=== PATIENT | male | born 1965 | race Caucasian/White ===

== ENCOUNTER 2018-04-09 06:22 | Day surgery (SDC) | payer BC ==
[2018-03-24 12:04] VITALS: BMI 35.7
[2018-04-09] MEDS ORDERED: THROMBIN (RECOMBINANT) 5,000 UNIT VIAL TP ONE (07:02)
[2018-04-09] MEDS ORDERED: methylPREDNISolone ACET (DEPO) 40 MG/1 ML VIAL ONE (07:02)
[2018-04-09] MEDS ORDERED: GUM MASTIC/STORAX/MSAL/ALCOHOL 1 DRP DROPSBTL MC ONE (07:02)
[2018-04-09] MEDS ORDERED: BUPIVACAINE HCL/PF 2.5 MG/ML - 30 ML VIAL IJ ONE (07:02)
[2018-04-09] MEDS ORDERED: LIDOCAINE 1%/EPI 1:100000 (20 ML MULTI DOSE VIAL) ONE (07:02)
--- NOTE | 2018-04-09 07:09 | HP ---
History & Physical Update - History History: No Change - Physical Physical: No Change - Assessment Assessment: No Change - Plan Plan: No Change (Initial H&P is complete and accurate. No new medications or complaints since completing initial H&P. Prior too surgery c/o neck pain with LUE burning sensation, numbness and tingling. Here today for elective C7-T1 laminectomy.)
[2018-04-09] MEDS ORDERED: oxyCODONE HCL 10 MG SUSTAINED ACTING TABLET PO STA (07:12)
[2018-04-09] MEDS ORDERED: MIDAZOLAM HCL 2 MG/2 ML SINGLE DOSE VIAL ONE (07:39)
[2018-04-09] MEDS ORDERED: ROCURONIUM BROMIDE 50 MG/5 ML VIAL ONE (08:33)
[2018-04-09] MEDS ORDERED: PROPOFOL 20 ML ONE ×2 (08:33)
[2018-04-09] MEDS ORDERED: SUCCINYLCHOLINE CHLORIDE 200 MG/10 ML VIAL ONE (08:33)
[2018-04-09] MEDS ORDERED: LIDOCAINE HCL/PF 2% SDV 5ML VIAL ONE (08:41)
[2018-04-09] MEDS ORDERED: ONDANSETRON 4 MG/2 ML VIAL ONE ×2 (08:41→10:33)
[2018-04-09] MEDS ORDERED: ceFAZolin SODIUM 1 GM VIAL ONE (08:59)
[2018-04-09] MEDS ORDERED: DEXAMETHASONE SOD PHOSPHATE 4 MG/1 ML VIAL ONE ×2 (08:59→10:33)
[2018-04-09] MEDS ORDERED: LIDOCAINE 1%/EPI 1:100000 (50 ML MULTI DOSE VIAL) INF ONE (09:10)
[2018-04-09] MEDS ORDERED: THROMBIN (BOVINE) 5,000 UNIT VIAL TP ONE (09:31)
[2018-04-09] MEDS ORDERED: GELATIN SPONGE,ABSORBABLE 1 GM PACKET TP ONE (09:31)
[2018-04-09] MEDS ORDERED: ePHEDrine SULFATE 50 MG/1 ML AMPULE ONE (09:37)
[2018-04-09] MEDS ORDERED: LACTATED RINGERS SOLUTION 1,000 ML IV SCH (10:00)
[2018-04-09] MEDS ORDERED: ONDANSETRON 4 MG/2 ML VIAL IVPUSH PRN (10:00)
[2018-04-09] MEDS ORDERED: oxyCODONE HCL 5 MG TABLET PO PRN (10:00)
[2018-04-09] MEDS ORDERED: BUPIVACAINE HCL/PF 0.25% (2.5MG/ML) 10 ML VIAL IJ ONE (10:18)
[2018-04-09] MEDS ORDERED: methylPREDNISolone ACET (DEPO) 40 MG/1 ML VIAL IM ONE (10:21)
--- NOTE | 2018-04-09 10:45 | OP ---
Operative Note - Note: Operative Date: 04/09/18 Pre-Operative Diagnosis: C7-T1 disc herniation with LUE radiculopathy Operation: C7-T1 left laminectomy with discectomy Post-Operative Diagnosis: Same as Pre-op Surgeon: Trevor Henderson Senior Advisory: Bro Duran Anesthesiologist/PIANO INSTRUCTOR: Rosa Goff Anesthesia: General Specimens Removed: C7-T1 disc Estimated Blood Loss (mls): 20 Fluid Volume Replaced (mls): 1,200 Operative Report Dictated: Yes
--- NOTE | 2018-04-09 10:47 | SURG ---
Surgery Metal Slitter Note Metal Slitter: Bro Duran PA-C Date of Service: 04/09/18 Diagnosis: C7-T1 disc herniation with LUE radiculopathy Procedure: C7-T1 left laminectomy with discectomy I was present for the entirety of the operative procedure. For further detail, please refer to operative report. Visit type - Case Type Case Type: Scheduled - New patient This patient is new to me today: Yes Date on this admission: 04/09/18
[2018-04-09] MEDS ORDERED: ACETAMINOPHEN 1000 MG/100 ML VIAL (NON FORMULARY) IVPB ONE (10:51)
--- NOTE | 2018-04-09 11:27 | OP ---
DATE OF OPERATION: 04/09/2018 PREOPERATIVE DIAGNOSIS: Cervical stenosis, C7-T1. POSTOPERATIVE DIAGNOSIS: Cervical stenosis, C7-T1. PROCEDURE PERFORMED: Left posterior cervical hemilaminectomy. SURGEON: Trevor Henderson MD DRAGLINE MECHANIC: ABBY Jha ESTIMATED BLOOD LOSS: 50 mL. INTRAVENOUS FLUIDS: Per Anesthesia. ANESTHESIA: General. COMPLICATIONS: There were none. DISPOSITION: Patient brought to the PACU in stable condition. INDICATION FOR SURGERY: The patient is a 53-year-old gentleman who has been suffering from pain from his neck down his left arm. X-rays and MRI were completed which showed that he had cervical stenosis with a pinched nerve on his left-hand side. He had gone through an exhaustive course of treatment for this, which included medications, physical therapy, as well as injections. Unfortunately, his pain continued to persist, despite all of this. At this point, risks, benefits, and alternatives were discussed, and the patient consented to surgery. OPERATIVE NOTE: The patient was brought to the operating room by the Anesthesia staff. After appropriate patient identification was performed, general anesthesia was administered. The patient was placed prone onto the OR table with all areas of bony prominences well padded at this time. His arms were well padded. Tape was used to tape down his shoulder. Two needles were taped into his neck to juvencio off the C7-T1 location. X-rays taken to perform this was correct. Needle was removed and 10 mL of lidocaine with epinephrine was injected into his neck at this time. His neck was prepped and draped in a sterile manner. At this point, a timeout was completed. An incision was made from the top of C7 down to the bottom of T1. Dissection was carried to the fascia. The fascia was split open on the left-hand side. A retractor was then placed in. A spinal needle was placed onto the C6 lamina to juvencio off the C6-7 level. X-rays taken to confirm this was correct. Needle was removed. At this point, attention was turned to C7- T1. The microscope was brought in. A portion of the C7 and T1 facets was removed. The flavum was identified and was removed. A complete decompression was performed to expose the C8 nerve root. The nerve root was mobilized inferiorly. A disk herniation was noted and was removed at this time. By the end of the procedure , all bleeding was well controlled. Steroid was placed over the nerve root. Floseal was placed over that. The fascia was closed with a number 1 Vicryl suture. The subcutaneous tissues were closed with 2-0 Vicryl suture. Skin was closed with 3 -0 Monocryl suture. Dermabond was applied. Steri-Strips were applied. A sterile dressing was applied. The patient was placed supine on the OR bed, extubated in the OR, and brought to the PACU in stable condition. TREVOR HENDERSON M.D. /[id number] MTDD
[2018-04-09 12:36] VITALS: TEMP 98
[2018-04-09 13:57] VITALS: BP 145/87
[2018-04-09] MEDS ORDERED: ONDANSETRON 4 MG/2 ML VIAL IVPUSH ONE (14:05)
[2018-04-09] MEDS ORDERED: PROMETHAZINE HCL 25 MG/1 ML VIAL IVPUSH ONE ×2 (15:11→15:15)
[2018-04-09 17:51] VITALS: PULSE 80
[2018-04-09] MEDS ORDERED: ATENOLOL 50 MG TABLET (FP) PO SCH (22:00)
[2018-04-10] MEDS ORDERED: ESOMEPRAZOLE MAGNESIUM 40 MG PO SCH (10:00)
[2018-04-10] MEDS ORDERED: PANTOPRAZOLE 40 MG TABLET (FP) PO SCH (10:00)
[2018-04-10] MEDS ORDERED: amLODIPine BESYLATE 5 MG TABLET (FP) PO SCH (10:00)
[2018-04-10] MEDS ORDERED: CHOLECALCIFEROL (VITAMIN D3) 1,000 UNIT TABLET (FP) PO SCH (10:00)
[2018-04-10] MEDS ORDERED: ASPIRIN 81 MG CHEWABLE TABLETS PO SCH (10:00)
--- NOTE | 2018-04-17 12:10 | PATH ---
Surgical Pathology Report Patient Name: ANGELA COLUNGA [facility]. Rec. #: [id number] /Age/Gender: 1965 (Age: 53) / M Account: [id number] Location: [facility] Taken: 04/09/2018 Received: 04/09/2018 Reported: 04/17/2018 Physicians: Trevor Henderson M.D. Specimen(s) Received C7-T1 DISC Clinical History Spinal diagnosis Final Diagnosis C7-T1, LAMINECTOMY: CARTILAGE WITH DEGENERATIVE CHANGES. Electronically Signed Kalina Patel M.D. Gross Description Received in formalin labeled "C7-T1 disc," is a 1.7 x 1.1 x 0.3 cm aggregate of guzmán fragments of fibrocartilaginous tissue. The specimen is entirely submitted in one cassette. 04/10/201804/10/2018
== END 2018-04-09 17:15 | disposition home or self-care (01) ==
LOC: FASU 06:22
PROVIDERS: ATTEND Orthopaedic Surgery Orthopaedic Surgery of the Spine
PROC: 01N10ZZ Release Cervical Nerve, Open Approach (ICD-10-PCS; principal; 2018-04-09 08:30)
DX: M48.02 Spinal stenosis, cervical region (principal)
CPT/HCPCS: 72050-TC-FY; 88304-TC; 94760; J0131